=== PATIENT | female | born 1955 | race Hispanic/Latino ===

== ENCOUNTER 2016-08-13 23:11 | Emergency (ER) | payer OTHER ==
[~2016-08-13] VITALS: Ht 144.8 cm; Wt 66.7 kg
[~2016-08-13 23:11] MED LIST: DCS100C PO; FAMO-119 PO; FAMO20TA5 PO; HYDR-3454 PO; PANT40TA2 PO
--- OUTSIDE RECORDS SUMMARY | 2016-08-13 23:19 | XMS REPORT | Continuity of Care Document ---
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 Role Phone NO, LOCAL PHYSICIAN PCP Unavailable Insurance Providers Payer Name Policy Number Subscriber Name Relationship Unknown Sarah Capone 19 Self / Same As Patient Advance Directives Directive Response Recorded Date/Time Advance Directives No 08/11/16 8:05pm Resuscitation Status Full Code 08/11/16 8:05pm Chief Complaint and Reason for Visit Chief Complaint Abdominal/GI Problems Reason for Visit Right-sided abdominal pain of unknown cause Problems Active Problems Medical Problem Onset Date Status Reflux esophagitis Unknown Acute Reflux esophagitis Unknown Acute Right-sided abdominal pain of unknown cause Unknown Acute Medications Current Home Medications Medication Dose Units Route Directions Days/Qty Instructions Start Date Famotidine 20 Mg 20 Mg Oral Twice A Day 10/14/14 Hydrocodone Bit/Acetaminophen 1 Each 1 Each Oral Every 4HRS as needed for Pain 30 10/21/14 Docusate Sodium 100 Mg 100 Mg Oral Twice A Day 60 10/21/14 Pantoprazole Sodium 40 Mg 40 Mg Oral Daily 30 08/11/16 Past Home Medications Medication Directions Ordered Status Famotidine (Pepcid) 20 Mg Tablet, 1 Each Oral Twice A Day 06/25/14 Discontinued Social History Social History Problem Response Recorded Date/Time Alcohol Use Denies Use 06/24/2014 10:57pm Recreational Drug Use Yes 06/24/2014 10:57pm Recent Foreign Travel No 08/11/2016 8:05pm Recent Infectious Disease Exposure No 08/11/2016 8:05pm Hospitalization with Isolation Denies 08/11/2016 8:05pm Smoking Status Never a Smoker 08/11/2016 8:05pm Recent Hopitalizations No 08/11/2016 8:05pm Hospitalization with Isolation Denies 08/11/2016 8:05pm Query Response Start Date Stop Date Smoking Status Never a Smoker Hospital Discharge Instructions No hospital discharge instructions. Plan of Care Discharge Date 08/11/16 10:46pm Disposition 01 HOME, SELF-CARE Condition at Discharge Stable Instructions/Education Provided No Instuctions Given Prescriptions See Medication Section Referrals NO,LOCAL PHYSICIAN - Primary Care Physician Additional Instructions/Education 1. Medication as directed 2. Follow-up with your doctor next week 3. Return to ER for any worsening All discharge instructions reviewed with patient and/or family. Voiced understanding. Functional Status No functional status results. Allergies, Adverse Reactions, Alerts No known allergies. Immunizations No immunization records. Vital Signs Acute Vital Signs Vital Response Date/Time Temperature (Fahrenheit) 97.9 degrees F (97.6 - 99.5) 08/11/2016 8:05pm Temperature (Calculated Celsius) 36.39257 degrees C (36.4 - 37.5) 08/11/2016 8:05pm Temperature Source Temporal 08/11/2016 8:05pm Pulse Rate (adult) 71 bpm (60 - 90) 08/11/2016 8:05pm Respiratory Rate 16 bpm (12 - 24) 08/11/2016 8:05pm O2 Sat by Pulse Oximetry 100 % (88 - 100) 08/11/2016 8:05pm Blood Pressure 203/99 mm Hg 08/11/2016 8:05pm Blood Pressure Mean 133 mm Hg 08/11/2016 8:05pm Pain Numeric Pain Scale 8 08/11/2016 8:49pm Height (Feet) 4 feet 08/11/2016 8:05pm Height (Inches) 9 inches 08/11/2016 8:05pm Height (Calculated Centimeters) 144.266528 cm 08/11/2016 8:05pm Weight (Pounds) 147 pounds 08/11/2016 8:05pm Weight (Calculated Kilograms) 66.243181 kilograms 08/11/2016 8:05pm Capillary Refill Capillary Refill Less Than 3 Seconds 08/11/2016 8:05pm Height 4 ft 9 in Weight 147 lb Body Mass Index 31.8 kg/m^2 Results Laboratory Results Test Name Result Units Flags Reference Collection Date/Time Result Date/ Time Comments White Blood Count 7.3 10^3/uL 4.3-11.0 08/11/2016 8:25pm 08/11/2016 8: 39pm Red Blood Count 5.08 10^6/uL 4.35-5.85 08/11/2016 8:08/11/2016 8: 39pm Hemoglobin 15.0 G/DL 11.5-16.0 08/11/2016 8:25pm 08/11/2016 8:39pm Hematocrit 45 % 35-52 08/11/2016 8:08/11/2016 8:39pm Mean Corpuscular Volume 88 FL 80-99 08/11/2016 8:08/11/2016 8: 39pm Mean Corpuscular Hemoglobin 30 PG 25-34 08/11/2016 8:08/11/2016 8: 39pm Mean Corpuscular Hemoglobin Concent 34 G/DL 32-36 08/11/2016 8: 8:39pm Red Cell Distribution Width 13.1 % 10.0-14.5 08/11/2016 8:2015 8:39pm Platelet Count 246 10^3/uL 130-400 08/11/2016 8:08/11/2016 8:39pm Mean Platelet Volume 10.5 FL H 7.4-10.4 08/11/2016 8:08/11/2016 8: 39pm Neutrophils (%) (Auto) 64 % 42-75 08/11/2016 8:08/11/2016 8:39pm Lymphocytes (%) (Auto) 28 % 12-44 08/11/2016 8:pm 08/11/2016 8:39pm Monocytes (%) (Auto) 6 % 0-12 08/11/2016 8:08/11/2016 8:39pm Eosinophils (%) (Auto) 2 % 0-10 08/11/2016 8:pm 08/11/2016 8:39pm Basophils (%) (Auto) 1 % 0-10 08/11/2016 8:08/11/2016 8:39pm Neutrophils # (Auto) 4.7 X 10^3 1.8-7.8 08/11/2016 8:25pm 08/11/2016 8: 39pm Lymphocytes # (Auto) 2.0 X 10^3 1.0-4.0 08/11/2016 8:25pm 08/11/2016 8: 39pm Monocytes # (Auto) 0.5 X 10^3 0.0-1.0 08/11/2016 8:25pm 08/11/2016 8: 39pm Eosinophils # (Auto) 0.1 10^3/uL 0.0-0.3 08/11/2016 8:25pm 08/11/2016 8 :39pm Basophils # (Auto) 0.1 10^3/uL 0.0-0.1 08/11/2016 8:25pm 08/11/2016 8: 39pm Urine Color YELLOW 08/11/2016 8:00pm 08/11/2016 8:37pm Urine Clarity CLEAR 08/11/2016 8:00pm 08/11/2016 8:37pm Urine pH 7 5-9 08/11/2016 8:00pm 08/11/2016 8:37pm Urine Specific [place] 1.010 * 1.016-1.022 08/11/2016 8:00pm 2015 8:37pm Urine Protein NEGATIVE NEGATIVE 08/11/2016 8:00pm 08/11/2016 8:37pm Urine Glucose (UA) NEGATIVE NEGATIVE 08/11/2016 8:00pm 08/11/2016 8: 37pm Urine RBC (Auto) NEGATIVE NEGATIVE 08/11/2016 8:00pm 08/11/2016 8: 37pm Urine Ketones NEGATIVE NEGATIVE 08/11/2016 8:00pm 08/11/2016 8:37pm Urine Nitrite NEGATIVE NEGATIVE 08/11/2016 8:00pm 08/11/2016 8:37pm Urine Bilirubin NEGATIVE NEGATIVE 08/11/2016 8:00pm 08/11/2016 8: 37pm Urine Urobilinogen NORMAL MG/DL NORMAL 08/11/2016 8:00pm 08/11/2016 8: 37pm Urine Leukocyte Esterase NEGATIVE NEGATIVE 08/11/2016 8:00pm 2015 8:37pm Urine RBC NONE /HPF 08/11/2016 8:00pm 08/11/2016 8:37pm Urine WBC RARE /HPF 08/11/2016 8:00pm 08/11/2016 8:37pm Urine Bacteria NEGATIVE /HPF 08/11/2016 8:00pm 08/11/2016 8:37pm Urine Squamous Epithelial Cells RARE /HPF 08/11/2016 8:00pm 2015 8:37pm Urine Renal Epithelial Cells NONE /HPF 08/11/2016 8:00pm 08/11/2016 8 :37pm Urine Crystals NONE /LPF 08/11/2016 8:00pm 08/11/2016 8:37pm Urine Casts NONE /LPF 08/11/2016 8:00pm 08/11/2016 8:37pm Urine Mucus NEGATIVE /LPF 08/11/2016 8:00pm 08/11/2016 8:37pm Urine Culture Indicated NO 08/11/2016 8:00pm 08/11/2016 8:37pm Sodium Level 138 MMOL/L 135-145 08/11/2016 8:25pm 08/11/2016 8:59pm Potassium Level 3.9 MMOL/L 3.6-5.0 08/11/2016 8:25pm 08/11/2016 8:59pm Chloride Level 105 MMOL/L 98-107 08/11/2016 8:pm 08/11/2016 8:59pm Carbon Dioxide Level 22 MMOL/L 21-32 08/11/2016 8:pm 08/11/2016 8: 59pm Anion Gap 11 MMOL/L 5-14 08/11/2016 8:pm 08/11/2016 8:59pm Blood Urea Nitrogen 14 MG/DL 7-18 08/11/2016 8:08/11/2016 8:59pm Creatinine 0.72 MG/DL 0.60-1.30 08/11/2016 8:08/11/2016 8:59pm BUN/Creatinine Ratio 19 08/11/2016 8:pm 08/11/2016 8:59pm Estimat Glomerular Filtration Rate > 60 08/11/2016 8:pm 2015 8:59pm GFR INTERPRETIVE DATA UNITS FOR ESTIMATED GFR (eGFR): mL/min/1.73 M2 REFERENCE RANGE FOR ESTIMATED GFR (eGFR) eGFR NORMAL eGFR >60 MODERATELY DECREASED eGFR 30-59 SEVERLY DECREASED eGFR 15-29 KIDNEY FAILURE <15 (OR DIALYSIS) Glucose Level 120 MG/DL H 70-105 08/11/2016 8:25pm 08/11/2016 8:59pm Calcium Level 9.1 MG/DL 8.5-10.1 08/11/2016 8:25pm 08/11/2016 8:59pm Total Bilirubin 0.3 MG/DL 0.1-1.0 08/11/2016 8:25pm 08/11/2016 8:59pm Alkaline Phosphatase 164 U/L H 40-136 08/11/2016 8:25pm 08/11/2016 8: 59pm Aspartate Amino Transf (AST/SGOT) 30 U/L 5-34 08/11/2016 8:25pm 2015 8:59pm Alanine Aminotransferase (ALT/SGPT) 55 U/L 0-55 08/11/2016 8:25pm 08/11 8:59pm Total Protein 7.4 G/DL 6.4-8.2 08/11/2016 8:25pm 08/11/2016 8:59pm Albumin 4.5 G/DL 3.2-4.5 08/11/2016 8:25pm 08/11/2016 8:59pm Procedures No known history of procedures. Encounters Encounter Location Arrival/Admit Date Discharge/Depart Date Attending Provider Departed Emergency Room [facility] 08/11/16 6:56pm 08/11 10:46pm SILVER LOPEZ APRN Recent Diagnosis
[2016-08-14] MEDS ORDERED: CYCL5TAB PO (00:24)
--- NOTE | 2016-08-14 00:33 | ED Abdominal Pain ---
General Chief Complaint: Abdominal/GI Problems Stated Complaint: RT SIDE PAIN,NAUSEA,FEVER Nursing Triage Note: PT'S FAMILY TRANSLATE PT HERE 08/11/16 FOR RUQ PAIN AND RETURNS TONIGHT WITH NO RESOLUTION AND WORSENING PAIN. ONLY HAS NAUSEA, LAST BM YESTERDAY. PT IS TAKING HER NEW RX PROTONIX. PT TAKEN TO [facility] TODAY AND CYCLOBENZAPRINE FOR MUSCLE SPASMS PRESCRIBED. DESCRIBES PAIN WITH MOVEMENTS. Sepsis Screen: No Definite Risk Source of Information: Patient, Family Exam Limitations: Language Barrier History of Present Illness Time Seen By Provider: 00:33 Initial Comments As above. Timing/Duration: 4-5 Days Severity/Quality: Moderate Location: Flank (RIGHT) Radiation: No Radiation Activities at Onset: None Modifying Factors: Improves With Other (NONE) Associated Symptoms: Denies Symptoms Allergies and Home Medications Allergies Coded Allergies: No Known Drug Allergies (Unverified , 06/24/14) Home Medications Cefdinir 300 Mg Capsule #14 300 MG PO BID Prescribed by: SANDRA PAYTON on 08/14/16152 Cyclobenzaprine HCl 5 Mg Tablet 10 MG PO BID (Reported) Pantoprazole Sodium 40 Mg Tablet.dr #30 40 MG PO DAILY Prescribed by: SILVER LOPEZ on 08/11/162238 Tramadol HCl 50 Mg Tablet #20 50-100 MG PO Q6H PRN PRN FLANK PAIN Prescribed by: SANDRA PAYTON on 08/14/16152 Review of Systems Constitutional: see HPI Gastrointestinal: See HPI Other (right flank pain) All Other Systems Reviewed Negative Unless Noted: Yes (Negative excepted noted.) Past Phoihkk-Ocxtaf-Fwivzk Hx Patient Social History Alcohol Use: Denies Use Recreational Drug Use: No Smoking Status: Never a Smoker Recent Foreign Travel: No Contact w/Someone Who Travel: No Recent Infectious Disease Expo: No Recent Hopitalizations: No Physical Abuse Screen: No Sexual Abuse: No Immunizations Up To Date Tetanus Booster (TDap): Less than 5yrs PED Vaccines UTD: Yes Date of Influenza Vaccine: May 12, 2014 Seasonal Allergies Seasonal Allergies: No Surgeries HX Surgeries: Yes Surgeries: Section, Gallbladder Respiratory Hx Respiratory Disorders: No Cardiovascular Hx Cardiac Disorders: No Neurological Hx Neurological Disorders: No Reproductive System Hx Reproductive Disorders: No 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 Genitourinary Hx Genitourinary Disorders: No Gastrointestinal Hx Gastrointestinal Disorders: Yes Gastrointestinal Disorders: Gastrointestinal Bleed, Gall Bladder Disease Musculoskeletal Hx Musculoskeletal Disorders: No Endocrine Hx Endocrine Disorders: No HEENT HX ENT Disorders: No Cancer Hx Cancer: No Psychosocial Hx Psychiatric Problems: No Integumentary HX Skin/Integumentary Disorder: No Blood Transfusions Hx Blood Disorders: No Physical Exam Vital Signs VS - Last 72 Hours, by Label 08/14/16 08/14/16 08/14/16 00:07 02:29 02:33 Temp 98.5 98.5 98.5 Pulse 74 72 Resp 18 20 B/P 167/92 Pulse Ox 94 95 O2 Delivery Room Air Room Air Capillary Refill : Less Than 3 Seconds General Appearance: WD/WN no apparent distress Respiratory: no respiratory distress Cardiovascular: regular rate, rhythm Gastrointestinal: non tender soft Rectal: deferred Back: CVA tenderness (R) Neurologic/Psychiatric: no motor/sensory deficits alert normal mood/affect Skin: warm/dry Progress/Results/Core Measures Results/Orders Lab Results Laboratory Tests Test 08/14/16 00:50 Range/Units Alanine Aminotransferase (ALT/SGPT) 54 0-55 U/L Albumin 4.3 3.2-4.5 G/DL Alkaline Phosphatase 144 H 40-136 U/L Anion Gap 11 5-14 MMOL/L Aspartate Amino Transf (AST/SGOT) 30 5-34 U/L BUN/Creatinine Ratio 14 Basophils # (Auto) 0.0 0.0-0.1 10^3/uL Basophils (%) (Auto) 1 0-10 % Blood Urea Nitrogen 10 7-18 MG/DL Calcium Level 9.1 8.5-10.1 MG/DL Carbon Dioxide Level 21 21-32 MMOL/L Chloride Level 106 98-107 MMOL/L Creatinine 0.73 0.60-1.30 MG/DL Eosinophils # (Auto) 0.1 0.0-0.3 10^3/uL Eosinophils (%) (Auto) 1 0-10 % Estimat Glomerular Filtration Rate > 60 Glucose Level 120 H 70-105 MG/DL Hematocrit 46 35-52 % Hemoglobin 15.4 11.5-16.0 G/DL Lipase 13 8-78 U/L Lymphocytes # (Auto) 1.8 1.0-4.0 X 10^3 Lymphocytes (%) (Auto) 28 12-44 % Mean Corpuscular Hemoglobin 30 25-34 PG Mean Corpuscular Hemoglobin Concent 34 32-36 G/DL Mean Corpuscular Volume 88 80-99 FL Mean Platelet Volume 10.7 H 7.4-10.4 FL Monocytes # (Auto) 0.5 0.0-1.0 X 10^3 Monocytes (%) (Auto) 7 0-12 % Neutrophils # (Auto) 4.0 1.8-7.8 X 10^3 Neutrophils (%) (Auto) 63 42-75 % Platelet Count 254 130-400 10^3/uL Potassium Level 4.2 3.6-5.0 MMOL/L Red Blood Count 5.21 4.35-5.85 10^6/uL Red Cell Distribution Width 12.9 10.0-14.5 % Sodium Level 138 135-145 MMOL/L Total Bilirubin 0.5 0.1-1.0 MG/DL Total Protein 7.2 6.4-8.2 G/DL Urine Bacteria FEW H /HPF Urine Bilirubin NEGATIVE NEGATIVE Urine Casts NONE /LPF Urine Clarity CLEAR Urine Color RED H Urine Crystals NONE /LPF Urine Culture Indicated YES Urine Glucose (UA) NEGATIVE NEGATIVE Urine Ketones NEGATIVE NEGATIVE Urine Leukocyte Esterase 3+ H NEGATIVE Urine Mucus NEGATIVE /LPF Urine Nitrite NEGATIVE NEGATIVE Urine Protein NEGATIVE NEGATIVE Urine RBC NONE /HPF Urine RBC (Auto) NEGATIVE NEGATIVE Urine Specific [place] 1.010 L 1.016-1.022 Urine Squamous Epithelial Cells 2-5 /HPF Urine Urobilinogen 1 NORMAL MG/DL Urine WBC 10-25 H /HPF Urine pH 6.5 5-9 White Blood Count 6.3 4.3-11.0 10^3/uL Micro Results Microbiology 08/14/16 Urine Culture - Final, Complete Streptococcus Viridans Escherichia Coli My Orders Orders-SANDRA PAYTON DO Saline Lock/Iv-Start (08/14/16 00:33) Cbc With Automated Diff (08/14/16 00:33) Comprehensive Metabolic Panel (08/14/16 00:33) Lipase (08/14/16 00:33) Ua Culture If Indicated (08/14/16 00:33) Urine Culture (08/14/16 00:50) Cefdinir Capsule (Omnicef Capsule) (08/14/16 02:00) Tramadol Tablet (Ultram Tablet) (08/14/16 02:00) Vital Signs/I&O Vital Sign - Last 12Hours 08/14/16 08/14/16 08/14/16 00:07 02:29 02:33 Temp 98.5 98.5 98.5 Pulse 74 72 Resp 18 20 B/P 167/92 Pulse Ox 94 95 O2 Delivery Room Air Room Air Blood Pressure Mean: 117 Departure Impression Impression: Primary Impression: Right flank pain Additional Impressions: UTI (urinary tract infection) Fatty liver Disposition: HOME, SELF-CARE Condition: Stable Departure-Patient Inst. Decision time for Depature: 01:50 Referrals: [facility] (PCP/Family) Primary Care Physician FANY MCKAY DO Patient Instructions: Flank Pain (DC), Nonalcoholic Fatty Liver Disease (DC), Urinary Tract Infection, Adult (DC) Add. Discharge Instructions: All discharge instructions reviewed with patient and/or family. Voiced understanding. IF SYMPTOMS PERSIST, RECOMMEND FOLLOW UP WITH DR. MCKAY FOR FURTHER EVALUATION. Scripts Tramadol HCl 50 Mg [id number] Mg PO Q6H PRN FLANK PAIN #20 TAB Ref 0 Prov:SANDRA PAYTON DO 08/14/16 Cefdinir 300 Mg [id number] Mg PO BID UTI #14 CAP Ref 0 Prov:SANDRA PAYTON DO 08/14/16 SANDRA PAYTON DO Aug 14, 2016 00:33
[2016-08-14 00:58] LABS: BASOPHILS % (AUTO) 1 % (0-10); BILIRUBIN,URINE NEGATIVE (NEGATIVE); EOSINOPHILS # (AUTO) 0.1 10^3/uL (0.0-0.3); EOSINOPHILS % (AUTO) 1 % (0-10); KETONES,URINE NEGATIVE (NEGATIVE); LEUKOCYTE ESTERASE ,URINE 3+ (NEGATIVE); LYMPHOCYTES # (AUTO) 1.8 X 10^3 (1.0-4.0); LYMPHOCYTES % (AUTO) 28 % (12-44); MEAN CORPUSCULAR HEMOGLOBIN 30 PG (25-34); MEAN CORPUSCULAR HGB CONC 34 G/DL (32-36); MEAN CORPUSCULAR VOLUME 88 FL (80-99); MEAN PLATELET VOLUME 10.7 FL (7.4-10.4); MONOCYTES # (AUTO) 0.5 X 10^3 (0.0-1.0); MONOCYTES % (AUTO) 7 % (0-12); NEUTROPHILS % (AUTO) 63 % (42-75); NITRITE,URINE NEGATIVE (NEGATIVE); PH,URINE 6.5 (5-9); PLATELET COUNT 254 10^3/uL (130-400); PROTEIN,URINE NEGATIVE (NEGATIVE); RED BLOOD COUNT 5.21 10^6/uL (4.35-5.85); RED CELL DISTRIBUTION WIDTH 12.9 % (10.0-14.5); UROBILINOGEN,URINE 1 MG/DL (NORMAL); WHITE BLOOD COUNT 6.3 10^3/uL (4.3-11.0)
[2016-08-14 01:21] LABS: ALANINE AMINOTRANSFERASE 54 U/L (0-55); ALBUMIN 4.3 G/DL (3.2-4.5); ANION GAP 11 MMOL/L (5-14); ASPARTATE AMINO TRANSFERASE 30 U/L (5-34); BILIRUBIN,TOTAL 0.5 MG/DL (0.1-1.0); BLOOD UREA NITROGEN 10 MG/DL (7-18); BUN/CREATININE RATIO 14; CALCIUM 9.1 MG/DL (8.5-10.1); CARBON DIOXIDE 21 MMOL/L (21-32); CHLORIDE 106 MMOL/L (98-107); CREATININE SERUM 0.73 MG/DL (0.60-1.30); GFR ESTIMATED > 60; GLUCOSE 120 MG/DL (70-105); LIPASE 13 U/L (8-78); POTASSIUM 4.2 MMOL/L (3.6-5.0); SODIUM 138 MMOL/L (135-145); TOTAL PROTEIN 7.2 G/DL (6.4-8.2)
[2016-08-14] MEDS ORDERED: TRAM50TA2 PO (01:53)
[2016-08-14] MEDS ORDERED: CEFD300C3 PO (01:53)
[2016-08-14] MEDS ORDERED: CEFDINIR 300 MG (OMNICEF) CAP PO ONE (02:00)
[2016-08-14 02:33] VITALS: BP 173/96
== END 2016-08-14 02:33 | disposition home or self-care (01) ==
LOC: EDUNIT# 23:11 → ER 23:15
DX: R10.31 Right lower quadrant pain (principal); N39.0 Urinary tract infection, site not specified; K76.0 Fatty (change of) liver, not elsewhere classified
CPT/HCPCS: 36415; 80053; 81000; 83690; 85025; 87077; 87088; 87186

== ENCOUNTER 2018-01-03 19:09 | Emergency (ER) | payer SELFPAY ==
[~2018-01-03] VITALS: Ht 152.4 cm; Wt 59.0 kg
[~2018-01-03 19:09] MED LIST changes: +CEFD300C3 PO; +CYCL5TAB PO; +TRAM50TA2 PO
--- NOTE | 2018-01-03 21:03 | ED EENT ---
History of Present Illness General Chief Complaint: Abdominal/GI Problems Stated Complaint: R EYE SWOLLEN/THROWING UP/POSS DEYHDRATED Nursing Triage Note: c/o headache, R eye pain with n/v Source: patient Exam Limitations: no limitations History of Present Illness Date Seen by Provider: January 03, 2018 Time Seen by Provider: 20:50 Initial Comments Patient presents to ER by private conveyance with her significant others who are interpreting for her. She says she's been in the hospital last week and seen her doctors last several days every day trying to get her vision worked on. She has a history of glaucoma and is was losing vision in both eyes. They' re able to get her left eye open but not her right eye. He tried to surgery but said something about being too thick. She follows with Dr. Bonds as well as ophthalmology surgeon but they don't know the name. She does have drops for her eyes but doesn't take any other medicines. She says the drops hurt because pain in her head and so she does not think they're helping. She has only vague blurry vision on the right side and can read print about a inch tall with her left eye. She does not wear glasses. Her review the note from last week demonstrates that she was treated with Timolol and Latanoprost for a very similar Presentation. The CT head showed Preseptal subtle changes. Labs were unremarkable. Allergies and Home Medications Allergies Coded Allergies: No Known Drug Allergies (Unverified , 06/24/14) Home Medications No Active Prescriptions or Reported Meds Patient Home Medication List Home Medication List Reviewed: Yes Review of Systems Constitutional: No chills, No diaphoresis Eyes: Blindness, Blurred Vision; Denies Drainage; Decreased Acuity; Denies Foreign Body Sensation; Pain Ears: Denies Dizziness, Denies Pain Nose: denies clots, denies congestion Mouth: denies clots Throat: denies pain, denies swelling Respiratory: No cough, No dyspnea on exertion Cardiovascular: No chest pain, No Hx of Intervention, No palpitations Past Wnowrnm-Ukgyfz-Eozqbn Hx Patient Social History Alcohol Use: Denies Use Recreational Drug Use: No Smoking Status: Never a Smoker Recent Foreign Travel: No Contact w/Someone Who Travel: No Recent Infectious Disease Expo: No Recent Hopitalizations: No Immunizations Up To Date Tetanus Booster (TDap): Less than 5yrs PED Vaccines UTD: Yes Date of Influenza Vaccine: May 12, 2014 Seasonal Allergies Seasonal Allergies: No Past Medical History Surgeries: Yes Section, Gallbladder Respiratory: No Cardiac: No Neurological: No 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 Tonometry 19 left, Over value on right); left eye normal inspection, left eye PERRL, left eye EOMI Ears: bilateral ear auricle normal, bilateral ear canal normal, bilateral ear TM normal Nose: normal inspection, active bleeding, discharge Mouth/Throat: normal mouth inspection, pharynx normal, dental tenderness Neck: non-tender, full range of motion, supple, normal inspection Cardiovascular: normal peripheral pulses, regular rate, rhythm Respiratory: chest non-tender, lungs clear, normal breath sounds, no respiratory distress, no accessory muscle use Gastrointestinal: non tender, soft Neurologic/Psychiatric: alert, normal mood/affect, oriented x 3 Skin: normal color, warm/dry Progress/Results/Core Measures Results/Orders Lab Results Laboratory Tests Test 01/03/18 21:30 Range/Units White Blood Count 5.1 4.3-11.0 10^3/uL Red Blood Count 5.21 4.35-5.85 10^6/uL Hemoglobin 15.6 11.5-16.0 G/DL Hematocrit 44 35-52 % Mean Corpuscular Volume 84 80-99 FL Mean Corpuscular Hemoglobin 30 25-34 PG Mean Corpuscular Hemoglobin Concent 36 32-36 G/DL Red Cell Distribution Width 12.9 10.0-14.5 % Platelet Count 254 130-400 10^3/uL Mean Platelet Volume 10.9 H 7.4-10.4 FL Neutrophils (%) (Auto) 54 42-75 % Lymphocytes (%) (Auto) 37 12-44 % Monocytes (%) (Auto) 8 0-12 % Eosinophils (%) (Auto) 1 0-10 % Basophils (%) (Auto) 1 0-10 % Neutrophils # (Auto) 2.7 1.8-7.8 X 10^3 Lymphocytes # (Auto) 1.9 1.0-4.0 X 10^3 Monocytes # (Auto) 0.4 0.0-1.0 X 10^3 Eosinophils # (Auto) 0.0 0.0-0.3 10^3/uL Basophils # (Auto) 0.0 0.0-0.1 10^3/uL Sodium Level 140 135-145 MMOL/L Potassium Level 3.5 L 3.6-5.0 MMOL/L Chloride Level 107 98-107 MMOL/L Carbon Dioxide Level 23 21-32 MMOL/L Anion Gap 10 5-14 MMOL/L Blood Urea Nitrogen 8 7-18 MG/DL Creatinine 0.65 0.60-1.30 MG/DL Estimat Glomerular Filtration Rate > 60 BUN/Creatinine Ratio 12 Glucose Level 116 H 70-105 MG/DL Calcium Level 9.2 8.5-10.1 MG/DL Magnesium Level 2.0 1.8-2.4 MG/DL Total Bilirubin 0.8 0.1-1.0 MG/DL Aspartate Amino Transf (AST/SGOT) 28 5-34 U/L Alanine Aminotransferase (ALT/SGPT) 64 H 0-55 U/L Alkaline Phosphatase 143 H 40-136 U/L C-Reactive Protein High Sensitivity 0.07 0.00-0.50 MG/DL Total Protein 7.4 6.4-8.2 GM/DL Albumin 4.2 3.2-4.5 GM/DL My Orders Orders - TAHIRA SHAFER Cbc With Automated Diff (01/03/18 20:56) Comprehensive Metabolic Panel (01/03/18 20:56) Hs C Reactive Protein (01/03/18 20:56) Magnesium (01/03/18 20:56) Saline Lock/Iv-Start (01/03/18 20:56) Ondansetron Injection (Zofran Injectio (01/03/18 21:00) Fentanyl Injection (Sublimaze Injection (01/03/18 21:00) Tetracaine 0.5% Ophth Elin Sdv (Tetracai (01/03/18 21:15) Prednisolone 1% Ophthalmic Marcia (Pred For (01/03/18 22:00) Acetazolamide Injection (Diamox Injectio (01/03/18 22:00) Mannitol 25% Injection (Mannitol 25% Inj (01/03/18 23:45) Fentanyl Injection (Sublimaze Injection (01/04/18 00:00) Medications Given in ED Current Medications Medications Dose Ordered Sig/Pamela Route Start Time Stop Time Status Last Admin Dose Admin Fentanyl Citrate 50 mcg ONCE ONCE IVP 01/03/18 21:00 01/03/18 21:01 DC 01/03/18 21:24 50 MCG Fentanyl Citrate 50 mcg ONCE ONCE IVP 01/04/18 00:00 01/04/18 00:01 DC 01/04/18 00:02 50 MCG Mannitol 50 gm ONCE ONCE IV 01/03/18 23:45 01/03/18 23:46 DC 01/04/18 00:54 50 GM Ondansetron HCl 4 mg ONCE ONCE IVP 01/03/18 21:00 01/03/18 21:01 DC 01/03/18 21:25 4 MG Tetracaine HCl 4 ml ONCE ONCE OU 01/03/18 21:15 01/03/18 21:16 DC 01/03/18 21:24 1 ML Vital Signs/I&O 01/03/18 20:01 Temp 98.5 Pulse 69 Resp 18 B/P (MAP) 179/90 (119) Pulse Ox 93 Blood Pressure Mean: 119 Progress Progress Note #1: Time: 21:04 Progress Note Plan to get visual acuity and do a Surinder-Pen pressure after getting some tetracaine drops. We'll then consult with ophthalmology/building construction contractor. Progress Note #2: Time: 22:40 Progress Note Unable to give IV Diamox as it is not on formulary. We did give her 500 mg by mouth her own Diamox. We will reevaluate one hour later with tonometry. Progress Note #3: Time: 23:32 Progress Note from Repeat tonometry demonstrates over value on the right eye. This means that it is above 55 mmHg. Family says this is the same thing that happened yesterday when there at the optometrists office. They put all the same medicines and gave her the Diamox by mouth and rechecked it in an hour and a half and it still went up to 39 from 38. We discussed the recommendations for medical management and repeat drops as well as IV mannitol. We discussed the risks, benefits and alternatives to using IV mannitol. We do not have oral mannitol to give. The patient has accepted these risks of possible bleeding on the brain. We will give over an hour 50 mg. We'll give her some fentanyl for her head. The patient is better able to distinguish between how many fingers are being held up with her right eye now than when she arrived. She is still not 100% accurate though. Reexamination of her right pupil demonstrates it still about 4- 5 mm, nonreactive. Progress Note #4: Time: 02:14 Progress Note After the mannitol and repeat eyedrops her right tonometry is now 48 mmHg. She says her pain is improved and her vision has improved the point she can now distinguish with her right eye only between how many fingers are being held up by the practitioner. We have reapplied the combination prostaglandin and Timolol eyedrops and plan to reexamine in an hour. Progress Note #5: Time: 03:44 Progress Note Tonometry is now 42. This is a definite downward trend. We have instructed family to continue this every hour and follow-up with building construction contractor this morning at 8:00. They are okay with this plan. Patient's pain is under much better control. Consults #1: Consults Notes [id number]: Dr. Obrien recommends 500 mg of Diamox IV, latanoprost 2 drops, repeat the Combigan, in 15 mins, prednisolone eyedrops every hour, and then recheck in 45 minutes to an hour. Goal is to get the pressure in that right eye down below 35 mmHg. If we cannot that we should recontact the educational assistant. If we can then we should have them follow-up on the prednisolone eyedrops tomorrow morning by having them call the ophthalmology resident directly at [phone]. After initial round the tonometry has not changed. Discussed case with ophthalmology and they recommend is still a medical case and continue doing drops and rechecking every hour until he saw improvement. If the patient wants to be admitted up there than they would be okay with that but they would do the exact same thing up there. She has recommended oral mannitol. We do not have that so she simply could use IV mannitol with the caveat that it could result in bleeding in the brain. She says 50-100 mg IV. Consults #2: Consulting Physician: LEA GONCALVES OD Consults Notes Patient has been discussed with Dr. Goncalves . He agrees if we can show a downward trend on her tonometry by repeating the prednisolone, pilocarpine, Combigan every 1 hour as well as continuing the Diamox and we should let her go home to continue this at home and follow up in the morning with the on-call building construction contractor in the clinic. She has a scheduled procedure Saturday. Departure Impression Primary Impression: Acute angle-closure glaucoma of right eye Disposition: HOME, SELF-CARE Condition: Improved Departure-Patient Inst. Decision time for Depature: 03:45 [place] [facility] [place] Primary Care Physician Patient Instructions: Angle-Closure Glaucoma, Glaucoma Surgery (DC) Add. Discharge Instructions: Continue using the Combigan, prednisolone, pilocarpine every hour until you get in to see the building construction contractor this morning Dr. Win or Dr. Foy. If you have nausea you can take one tablet of Zofran every 6 hours as needed. All discharge instructions reviewed with patient and/or family. Voiced understanding. Scripts Ondansetron (Ondansetron Odt) 4 Mg Tab.rapdis 4 MG PO Q6H PRN for NAUSEA/VOMITING, #8 TAB 0 Refills Prov: TAHIRA SHAFER 01/04/18 Copy Copies To 1: RANJANA ERAZO TITUS J January 03, 2018 21:03
[2018-01-03] MEDS: fentaNYL INJECTION 100 MCG/2 ML AMP IVP ONE (21:24)
[2018-01-03] MEDS: TETRACAINE 0.5% OPHTH SOLN 4 ML BTL (SINGLE DOSE ONLY) OU ONE (21:24)
[2018-01-03] MEDS: ONDANSETRON 4 MG/2 ML (SDV) Z0FRAN IVP ONE (21:25)
[2018-01-03 21:38] LABS: BASOPHILS % (AUTO) 1 % (0-10); EOSINOPHILS % (AUTO) 1 % (0-10); HEMATOCRIT 44 % (35-52); HEMOGLOBIN 15.6 G/DL (11.5-16.0); LYMPHOCYTES # (AUTO) 1.9 X 10^3 (1.0-4.0); LYMPHOCYTES % (AUTO) 37 % (12-44); MEAN CORPUSCULAR HEMOGLOBIN 30 PG (25-34); MEAN CORPUSCULAR HGB CONC 36 G/DL (32-36); MEAN CORPUSCULAR VOLUME 84 FL (80-99); MEAN PLATELET VOLUME 10.9 FL (7.4-10.4); MONOCYTES # (AUTO) 0.4 X 10^3 (0.0-1.0); MONOCYTES % (AUTO) 8 % (0-12); NEUTROPHILS # (AUTO) 2.7 X 10^3 (1.8-7.8); NEUTROPHILS % (AUTO) 54 % (42-75); PLATELET COUNT 254 10^3/uL (130-400); RED BLOOD COUNT 5.21 10^6/uL (4.35-5.85); RED CELL DISTRIBUTION WIDTH 12.9 % (10.0-14.5); WHITE BLOOD COUNT 5.1 10^3/uL (4.3-11.0)
[2018-01-03 22:00] LABS: ALANINE AMINOTRANSFERASE 64 U/L (0-55); ALBUMIN 4.2 GM/DL (3.2-4.5); ALKALINE PHOSPHATASE 143 U/L (40-136); BILIRUBIN,TOTAL 0.8 MG/DL (0.1-1.0); BUN/CREATININE RATIO 12; CALCIUM 9.2 MG/DL (8.5-10.1); CARBON DIOXIDE 23 MMOL/L (21-32); CHLORIDE 107 MMOL/L (98-107); CREATININE SERUM 0.65 MG/DL (0.60-1.30); GFR ESTIMATED > 60; GLUCOSE 116 MG/DL (70-105); POTASSIUM 3.5 MMOL/L (3.6-5.0); SODIUM 140 MMOL/L (135-145); TOTAL PROTEIN 7.4 GM/DL (6.4-8.2)
[2018-01-03] MEDS ORDERED: ACETAZOLAMIDE IV SCH (22:00)
[2018-01-03] MEDS: prednisoLONE 1% OPTH (PRED FORTE) 5 ML BTL OU SCH (22:23)
[2018-01-04] MEDS: fentaNYL INJECTION 100 MCG/2 ML AMP IVP ONE (00:02)
[2018-01-04] MEDS: MANNITOL 25% 12.5 GM/50 ML VIAL IV ONE (00:54)
[2018-01-04] MEDS ORDERED: ONDA4TAB11 PO (03:46)
[2018-01-04 03:55] VITALS: BP 162/92
== END 2018-01-04 03:50 | disposition home or self-care (01) ==
LOC: ER 19:09
DX: H40.211 Acute angle-closure glaucoma, right eye (principal); Z87.19 Personal history of other diseases of the digestive system; Z87.59 Personal history of other complications of pregnancy, childbirth and the puerperium
CPT/HCPCS: 36415; 80053; 83735; 85025; 86141; 96365; 96375; 96376

== ENCOUNTER → 2018-05-05 | Outpatient (CLI) | payer OTHER ==
[~2018-05-05] MED LIST changes: +HYDR25TA4 PO; +ONDA4TAB11 PO
== END | disposition home or self-care (01) ==
LOC: PREOP 05:33
PROVIDERS: ATTEND Specialist
DX: Z01.818 Encounter for other preprocedural examination (principal)

== ENCOUNTER 2018-05-07 10:37 | Day surgery (SDC) | payer OTHER ==
[~2018-05-07] VITALS: Ht 142.2 cm; Wt 68.5 kg
[~2018-05-07 10:37] MED LIST changes: -HYDR25TA4 PO
[2018-05-07] MEDS ORDERED: LACTATED RINGERS 1,000 ML IV PRN (10:59)
[2018-05-07] MEDS ORDERED: LIDOCAINE PF 1% 2 ML AMP IR PRN (11:00)
[2018-05-07] MEDS ORDERED: EPINEPHrine INJECTION 1 MG/ML AMP INJ ONE (11:00)
[2018-05-07] MEDS ORDERED: POVIDONE (BETADINE) OPHTH SOLN 5% 30 ML OP ONE (11:00)
[2018-05-07] MEDS ORDERED: MOXIFLOXACIN OPHTH SOLN 5 MG/ML 0.3 ML SYRINGE OP ONE (11:00)
[2018-05-07] MEDS ORDERED: TIMOLOL MALEATE 0.5% 5 ML (TIMOPTIC) BTL OU PRN (11:00)
[2018-05-07] MEDS ORDERED: MANNITOL 25% 12.5 GM/50 ML VIAL IV ONE (11:00)
[2018-05-07] MEDS ORDERED: HYDR25TA4 PO (11:06)
[2018-05-07 11:17] VITALS: BP 143/76
[2018-05-07] MEDS: MANNITOL 20% IV NR ×2 (11:31→12:01)
[2018-05-07] MEDS: TETRACAINE 0.5% OPHTH SOLN 4 ML BTL (SINGLE DOSE ONLY) OU PRN ×4 (11:32→11:56)
[2018-05-07] MEDS: CYCLOPENTOLATE 1% (CYCLOGYL) 2 ML DROPS OP SCH ×3 (11:41→11:56)
[2018-05-07] MEDS: PHENYLEPHRINE 10% OPHTH (NEO-SYN) 5 ML BTL OU SCH ×3 (11:41→11:57)
[2018-05-07] MEDS ORDERED: ONDANSETRON 4 MG/2 ML (SDV) Z0FRAN ONE (12:06)
[2018-05-07] MEDS ORDERED: proPOfol 200 MG/20 ML (DIPRIVAN) VIAL IV ONE (12:06)
[2018-05-07] MEDS ORDERED: LIDOCAINE PF 2% 2 ML (XYLOCAINE) VIAL ONE (12:06)
[2018-05-07] MEDS ORDERED: DEXAMETHASONE 10 MG/ML (DECADRON) 1 ML VIAL ONE (12:06)
[2018-05-07] MEDS ORDERED: SEVOFLURANE (ULTANE) 15 ML INHAL SOLN ONE ×2 (12:07→12:55)
[2018-05-07] MEDS ORDERED: MIDAZOLAM 2 MG/2 ML (VERSED) VIAL ONE (12:07)
[2018-05-07] MEDS ORDERED: fentaNYL INJECTION 100 MCG/2 ML AMP ONE (12:07)
--- NOTE | 2018-05-07 12:07 | Ophthalmologist Pre-Op Note ---
Pre-Operative Progress Note H&P Reviewed The H&P was reviewed, patient examined and no changes noted. Date H&P Reviewed: May 07, 2018 Time H&P Reviewed: 12:06 Pre-Op Dx Cataract, Right Eye DENY RANDLE MD May 07, 2018 12:07
[2018-05-07] MEDS ORDERED: PHENYLEPHRINE 100 MCG/ML 10 ML (ANESTHESIA) SYR ONE (12:55)
--- NOTE | 2018-05-07 13:01 | Ophthalmology Operative Report ---
Cataract removal/placement IOL PREOPERATIVE DIAGNOSIS: Cataract Right Eye POSTOPERATIVE DIAGNOSIS: Cataract Right Eye PROCEDURE: Cataract removal and placement of posterior chamber implant, right eye SURGEON: Nick Randle ANESTHESIA: Topical with sedation COMPLICATIONS: None ESTIMATED BLOOD LOSS: Minimal DESCRIPTION OF PROCEDURE: After proper informed consent was obtained, the patient, a 62 female, was taken to the Operating Room and the right eye was anesthetized with tetracaine. The right eye was then prepped and draped in the usual manner. A wire lid speculum was placed. A paracentesis was made at the left hand position. Preservative free lidocaine was injected into the anterior chamber followed by viscoelastic. A clear corneal incision was made in the temporal position. A capsulorrhexis was preformed and the central nuclear and cortical material were removed. The posterior capsule was polished and Tre 28.0 [id number] IOL was placed into the capsular bag. The residual viscoelastic was aspirated and balanced saline solution was injected into the anterior chamber. Moxifloxacin was injected into the anterior chamber. The wound was checked and found to be water tight. The patient tolerated the procedure well without complications. NICK RANDLE MD May 07, 2018 13:01
--- NOTE | 2018-05-07 13:28 | Anesthesia-General Post-Op ---
MAC Patient Condition Mental Status/LOC: Same as Preop Cardiovascular: Satisfactory Nausea/Vomiting: Absent Respiratory: Satisfactory Pain: Controlled Complications: Absent Post Op Complications Complications None Follow Up Care/Instructions Patient Instructions None needed. Anesthesiology Discharge Order Discharge Order Patient is doing well, no complaints, stable vital signs, no apparent adverse anesthesia problems. No complications reported per nursing. MAT BELLO CRNA May 07, 2018 13:28
[2018-05-07 13:55] VITALS: BP 154/79
[2018-05-07 14:25] VITALS: BP 151/85
[2018-05-07 14:55] VITALS: BP 152/82
== END 2018-05-07 15:15 | disposition home or self-care (01) ==
LOC: SDC 10:37
PROVIDERS: ATTEND Specialist
DX: H26.9 Unspecified cataract (principal); I10 Essential (primary) hypertension; Z79.899 Other long term (current) drug therapy

== ENCOUNTER 2018-05-21 06:53 | Outpatient (CLI) | payer OTHER ==
[~2018-05-21] VITALS: Ht 142.2 cm; Wt 68.5 kg
[~2018-05-21 06:53] MED LIST changes: +HYDR25TA4 PO
== END 2018-05-22 12:21 | disposition home or self-care (01) ==
LOC: PREOP 06:53
PROVIDERS: ATTEND Specialist
DX: Z01.818 Encounter for other preprocedural examination (principal)

== ENCOUNTER 2018-05-23 09:30 | Day surgery (SDC) | payer SELFPAY ==
[~2018-05-23] VITALS: Ht 142.2 cm; Wt 68.5 kg
[2018-05-23 09:35] VITALS: BP 147/80
[2018-05-23] MEDS ORDERED: LIDOCAINE PF 1% 2 ML AMP IR PRN (09:45)
[2018-05-23] MEDS ORDERED: TIMOLOL MALEATE 0.5% 5 ML (TIMOPTIC) BTL OU PRN (09:45)
[2018-05-23] MEDS ORDERED: POVIDONE (BETADINE) OPHTH SOLN 5% 30 ML OP ONE (09:45)
[2018-05-23] MEDS ORDERED: acetaZOLAMIDE ER 500 MG CAP (DIAMOX SEQUELS) PO ONE (09:45)
[2018-05-23] MEDS ORDERED: EPINEPHrine INJECTION 1 MG/ML AMP INJ ONE (09:45)
[2018-05-23] MEDS ORDERED: BSS 15 ML IR PRN (09:45)
[2018-05-23] MEDS ORDERED: MOXIFLOXACIN OPHTH SOLN 5 MG/ML 0.3 ML SYRINGE OP ONE (09:45)
[2018-05-23] MEDS: TETRACAINE 0.5% OPHTH SOLN 4 ML BTL (SINGLE DOSE ONLY) OU PRN ×4 (09:54→10:06)
[2018-05-23] MEDS: PHENYLEPHRINE 10% OPHTH (NEO-SYN) 5 ML BTL OU SCH ×3 (09:57→10:06)
[2018-05-23] MEDS: CYCLOPENTOLATE 1% (CYCLOGYL) 2 ML DROPS OP SCH ×3 (09:57→10:06)
[2018-05-23] MEDS ORDERED: MANNITOL 20% (OSMITROL) PREMIX 500 ML BAG IV ONE (10:00)
[2018-05-23] MEDS ORDERED: MANNITOL 20% IV NR (10:30)
[2018-05-23] MEDS ORDERED: proPOfol 200 MG/20 ML (DIPRIVAN) VIAL IV ONE (10:48)
[2018-05-23] MEDS ORDERED: LIDOCAINE PF 2% 5 ML (XYLOCAINE) VIAL ONE (10:48)
[2018-05-23] MEDS ORDERED: ONDANSETRON 4 MG/2 ML (SDV) Z0FRAN ONE (10:48)
--- NOTE | 2018-05-23 10:48 | Ophthalmologist Pre-Op Note ---
Pre-Operative Progress Note H&P Reviewed The H&P was reviewed, patient examined and no changes noted. Date H&P Reviewed: May 23, 2018 Time H&P Reviewed: 10:47 Pre-Op Dx Cataract, Left Eye DENY RANDLE MD May 23, 2018 10:48
[2018-05-23] MEDS ORDERED: MIDAZOLAM 2 MG/2 ML (VERSED) VIAL ONE (10:49)
[2018-05-23] MEDS ORDERED: fentaNYL INJECTION 100 MCG/2 ML AMP ONE (10:57)
[2018-05-23] MEDS ORDERED: SEVOFLURANE (ULTANE) 15 ML INHAL SOLN ONE (11:08)
--- NOTE | 2018-05-23 11:44 | Ophthalmology Operative Report ---
Cataract removal/placement IOL PREOPERATIVE DIAGNOSIS: Cataract Left Eye POSTOPERATIVE DIAGNOSIS: Cataract Left Eye PROCEDURE: Cataract removal and placement of posterior chamber implant, left eye SURGEON: Nick Randle ANESTHESIA: General COMPLICATIONS: None ESTIMATED BLOOD LOSS: Minimal DESCRIPTION OF PROCEDURE: After proper informed consent was obtained, the patient, a 62 female, was taken to the Operating Room and the left eye was anesthetized with tetracaine. The left eye was then prepped and draped in the usual manner. A wire lid speculum was placed. A paracentesis was made at the left hand position. Preservative free lidocaine was injected into the anterior chamber followed by viscoelastic. A clear corneal incision was made in the temporal position. A capsulorrhexis was preformed and the central nuclear and cortical material were removed. The posterior capsule was polished and an Tre 28.5 AU00TO IOL was placed into the capsular bag. The residual viscoelastic was aspirated and balanced saline solution was injected into the anterior chamber. Moxifloxacin was injected into the anterior chamber. The wound was checked and found to be water tight. The patient tolerated the procedure well without complications. NICK RANDLE MD May 23, 2018 11:44
[2018-05-23] MEDS ORDERED: PHENYLEPHRINE 100 MCG/ML 10 ML (ANESTHESIA) SYR ONE (11:53)
[2018-05-23] MEDS ORDERED: ONDANSETRON 4 MG/2 ML (SDV) Z0FRAN IVP PRN (12:00)
[2018-05-23] MEDS ORDERED: HYDROmorphone 2 MG/ML VIAL (DILAUDID) IV ONE (12:00)
[2018-05-23] MEDS ORDERED: fentaNYL INJECTION 100 MCG/2 ML AMP IVP ONE (12:00)
[2018-05-23 12:40] VITALS: BP 147/80
[2018-05-23 13:10] VITALS: BP 137/108
[2018-05-23 13:40] VITALS: BP 152/97
--- NOTE | 2018-05-23 13:44 | Anesthesia-General Post-Op ---
General Patient Condition Mental Status/LOC: Same as Preop Cardiovascular: Satisfactory Nausea/Vomiting: Absent Respiratory: Satisfactory Pain: Controlled Complications: Absent Post Op Complications Complications None Follow Up Care/Instructions Patient Instructions None needed. Anesthesia/Patient Condition Patient Condition Patient is doing well, no complaints, stable vital signs, no apparent adverse anesthesia problems. No complications reported per nursing. D/[place] [facility] [place]: Yes BATOOL ARCE CRNA May 23, 2018 13:44
== END 2018-05-23 13:50 | disposition home or self-care (01) ==
LOC: SDC 09:30
PROVIDERS: ATTEND Specialist
DX: H25.12 Age-related nuclear cataract, left eye (principal); I10 Essential (primary) hypertension; E66.9 Obesity, unspecified; Z68.33 Body mass index [BMI] 33.0-33.9, adult; Z79.899 Other long term (current) drug therapy